=== PATIENT | female | born 1960 | race Caucasian/White ===

== ENCOUNTER 2018-06-09 21:45 | Emergency (ER) | payer OTHER ==
[~2018-06-09] VITALS: Ht 170.2 cm; Wt 75.3 kg
[~2018-06-09 21:45] MED LIST: L-CARNITINE500 MG PO; SINGULAIR 5MG5 MG PO
[2018-06-09] MEDS ORDERED: CLARITIN5 MG (22:00)
[2018-06-10] MEDS ORDERED: MECLIZINE HCL25 M1 PO (03:18)
== END 2018-06-10 03:39 | disposition home or self-care (01) ==
LOC: ER 21:45
DX: R42 Dizziness and giddiness (principal)